=== PATIENT | female | born 2000 | race Caucasian/White ===

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

== ENCOUNTER 2022-03-11 06:58 | Emergency (ER) | payer OTHER ==
[2022-03-11] MEDS ORDERED: Sodium Chloride 0.9% 2.5 ML Syringe FLUSH PRN (07:30)
[2022-03-11] MEDS ORDERED: fentaNYL 50 MCG/ML SDV IVPUSH ONE (07:30)
[2022-03-11] MEDS ORDERED: Sodium Chloride 0.9% 1,000 ML IV ONE (07:30)
[2022-03-11] MEDS ORDERED: Ondansetron 4 MG/2 ML SDV IVPUSH ONE (07:30)
[2022-03-11] MEDS ORDERED: Sodium Chloride 0.9% 10 ML Syringe FLUSH PRN (07:30)
[2022-03-11] MEDS ORDERED: Acetaminophen 325 MG Tab PO ONE (07:31)
[2022-03-11 07:51] LABS: CARBON DIOXIDE,CO2 23.7 mmol/L (21.0-32.0); POTASSIUM,K 3.9 mmol/L (3.5-5.1)
[2022-03-11] MEDS ORDERED: cefTRIAXone 1 GM in Sodium Chloride 0.9% 50 ML IV ONE (08:01)
== END 2022-03-11 11:35 | disposition home or self-care (01) ==
LOC: MW.ED 06:58
DX: O23.42 Unspecified infection of urinary tract in pregnancy, second trimester (principal); N39.0 Urinary tract infection, site not specified; Z3A.15 15 weeks gestation of pregnancy
CPT/HCPCS: 36415; 76775; 80053; 81001; 83690; 85025; 87086; 96365; 96375; 99284; A9270; J0696; J2405; J3010; J3490; J7030; J7050; 87088; 87186

== ENCOUNTER 2022-03-12 14:02 | Inpatient (IN) | payer OTHER ==
[2022-03-12] MEDS ORDERED: Sodium Chloride 0.9% 1,000 ML IV ONE ×3 (14:21→14:59)
[2022-03-12] MEDS ORDERED: cefTRIAXone 1 GM in Sodium Chloride 0.9% 50 ML IV ONE (14:21)
[2022-03-12] MEDS ORDERED: Sodium Chloride 0.9% 2.5 ML Syringe FLUSH PRN (14:21)
[2022-03-12] MEDS ORDERED: Sodium Chloride 0.9% 10 ML Syringe FLUSH PRN (14:21)
[2022-03-12] MEDS ORDERED: Acetaminophen 325 MG Tab PO ONE (14:22)
[2022-03-12] MEDS ORDERED: fentaNYL 50 MCG/ML SDV IVPUSH ONE (14:59)
[2022-03-12] MEDS ORDERED: Ondansetron 4 MG/2 ML SDV IVPUSH ONE (14:59)
[2022-03-12 15:14] LABS: CARBON DIOXIDE,CO2 23.7 mmol/L (21.0-32.0); POTASSIUM,K 3.2 mmol/L (3.5-5.1)
[2022-03-12] MEDS ORDERED: Potassium Chloride 20 MEQ Tab.ER PO ONE (17:30)
[2022-03-12] MEDS ORDERED: Ondansetron 4 MG/2 ML SDV IVPUSH PRN (17:31)
[2022-03-12 17:46] LABS: CORONAVIRUS COVID-19 NAA POSITIVE (NEGATIVE); INFLUENZA A NAA NEGATIVE (NEGATIVE); INFLUENZA B NAA NEGATIVE (NEGATIVE)
[2022-03-12] MEDS: Sodium Chloride 0.9% 1,000 ML IV SCH (19:39)
[2022-03-12] MEDS: Acetaminophen 325 MG Tab PO PRN (20:07)
[2022-03-13] MEDS: Sodium Chloride 0.9% 1,000 ML IV SCH ×3 (03:28→23:52)
[2022-03-13 06:22] LABS: CARBON DIOXIDE,CO2 19.6 mmol/L (21.0-32.0); POTASSIUM,K 3.4 mmol/L (3.5-5.1)
[2022-03-13] MEDS ORDERED: Potassium Chloride 20 MEQ Tab.ER PO ONE (06:52)
[2022-03-13] MEDS ORDERED: Phosphorus #1 250 MG Tab PO ONE (08:40)
[2022-03-13] MEDS ORDERED: Magnesium Sulfate/Water 2 GM in Premix Bag 1 BAG IV ONE (08:41)
[2022-03-13] MEDS: Enoxaparin 40 MG/0.4 ML Syringe SUBCUT SCH (10:11)
[2022-03-13] MEDS: PAXLOVID PO SCH ×2 (12:22→21:30)
[2022-03-13] MEDS ORDERED: cefTRIAXone 1 GM in Sodium Chloride 0.9% 50 ML IV SCH (15:00)
[2022-03-13] MEDS: Acetaminophen 325 MG Tab PO PRN (16:24)
[2022-03-14 07:33] LABS: CARBON DIOXIDE,CO2 21.2 mmol/L (21.0-32.0); POTASSIUM,K 3.4 mmol/L (3.5-5.1)
[2022-03-14] MEDS: PAXLOVID PO SCH (08:34)
[2022-03-14] MEDS: Enoxaparin 40 MG/0.4 ML Syringe SUBCUT SCH (08:35)
[2022-03-14] MEDS: Sodium Chloride 0.9% 1,000 ML IV SCH (08:36)
== END 2022-03-14 15:00 | disposition home or self-care (01) | DRG 831 ==
LOC: MW.ED 14:02 → MW.MS 14:44
PROVIDERS: ADMIT Internal Medicine; ATTEND Internal Medicine
PROC: 8E0ZXY6 Isolation (ICD-10-PCS; principal; 2022-03-12)
DX: O23.02 Infections of kidney in pregnancy, second trimester (principal); O23.42 Unspecified infection of urinary tract in pregnancy, second trimester; Z3A.15 15 weeks gestation of pregnancy; U07.1 COVID-19; O98.512 Other viral diseases complicating pregnancy, second trimester; E86.0 Dehydration; Z87.442 Personal history of urinary calculi
CPT/HCPCS: 0240U; 36415; 76775; 80053; 81001; 83605; 83735; 84100; 85025; 87040; 87086; 96361; 96365; 96375; 99222; 99232; 99238; 99283; 99285-25; A9270-GY; J0696; J1650; J2405; J3010; J3475; J3490; J7030; J7050

== ENCOUNTER 2022-06-16 10:46 | Emergency (ER) | payer OTHER | END 2022-06-16 11:39 | disposition still patient (30) | LOC: MW.ED 10:46 | DX: M25.561 Pain in right knee (principal); W10.8XXA Fall (on) (from) other stairs and steps, initial encounter | CPT/HCPCS: 73562-26-RT; 73562-RT; 99283 ==

== ENCOUNTER 2024-03-15 14:17 | Emergency (ER) | payer SELFPAY ==
[2024-03-15] MEDS: Lidocaine 1% 5 ML VIAL INJECT ONE (15:14)
[2024-03-15] MEDS: Bacitracin Oint 1 GM U/D Packet TOP ONE (15:14)
[2024-03-15] MEDS: Diphtheria,Pertussis(Acell),Tetanus Vaccine 0.5 ML Syringe IM ONE (15:16)
== END 2024-03-15 15:46 | disposition home or self-care (01) ==
LOC: MW.ED 14:17
DX: S61.511A Laceration without foreign body of right wrist, initial encounter (principal); Z23 Encounter for immunization; X58.XXXA Exposure to other specified factors, initial encounter
CPT/HCPCS: 12001; 90471; 99282-25; J3490